=== PATIENT | female | born 1935 | race African-American/Black ===

== ENCOUNTER 2021-03-24 09:33 | Emergency (ER) | payer OTHER, MEDICAID ==
[~2021-03-24] VITALS: Ht 165.1 cm; Wt 85.0 kg
[2021-03-24 10:50] LABS: BASOPHILS % 0.6 % (0.0-2.0); EOSINOPHILS % 2.4 % (0.0-5.0); LYMPHOCYTES % 10.2 % (20.0-50.0); MEAN CORPUSCULAR HEMOGLOBIN 28.2 pg (28.0-32.0); MEAN CORPUSCULAR VOLUME 86.3 fL (81.0-99.0); MEAN PLATELET VOLUME 8.7 fl (7.4-10.4); MONOCYTES % 8.3 % (2.0-8.0); NEUTROPHILS % 78.5 % (40.0-76.0); PLATELET 219 x1000/uL (130-400); RED BLOOD CELL COUNT 4.63 mill/uL (4.2-5.4); RED CELL DISTRIBUTION WIDTH 15.1 % (11.6-14.6)
[2021-03-24 10:56] LABS: CHLORIDE 106 mEq/L (98-107)
[2021-03-24 10:58] LABS: ETHANOL BLOOD < 10 mg/dL
[2021-03-24 14:01] VITALS: BP 136/69
== END 2021-03-24 14:48 | disposition home or self-care (01) ==
LOC: ER 09:33 → CANBEDREQ 17:05
DX: F03.90 Unspecified dementia, unspecified severity, without behavioral disturbance, psychotic disturbance, mood disturbance, and anxiety (principal); Z13.9 Encounter for screening, unspecified
CPT/HCPCS: 36415; 71045; 80053; 80320; 82140; 84484; 85025; 99284; G0480